=== PATIENT | male | born 1995 | race African-American/Black ===

== ENCOUNTER 2023-01-30 00:16 | Emergency (ER) | payer MEDICAID ==
[~2023-01-30] VITALS: Ht 188 cm; Wt 72.6 kg
[2023-01-30] MEDS ORDERED: ALBU2.5V13 NEB (00:25)
[2023-01-30] MEDS ORDERED: ALBU18HF2 INH (00:25)
[2023-01-30] MEDS ORDERED: predniSONE 20 MG TABLET ONE (00:29)
[2023-01-30] MEDS ORDERED: predniSONE 20 MG TABLET PO ONE (00:30)
[2023-01-30] MEDS ORDERED: IPRATROPIUM NEB FS 0.5 MG/2.5 ML AMPUL.NEB NEB ONE (00:30)
[2023-01-30] MEDS ORDERED: ALBUTEROL FS 2.5 MG/3 ML VIAL.NEB NEB ONE (00:30)
[2023-01-30 00:51] VITALS: O2SAT 99
[2023-01-30] MEDS ORDERED: IPRATROPIUM NEB FS 0.5 MG/2.5 ML AMPUL.NEB ONE (00:52)
[2023-01-30] MEDS ORDERED: ALBUTEROL FS 2.5 MG/3 ML VIAL.NEB ONE (00:52)
[2023-01-30 01:51] VITALS: O2SAT 100
[2023-01-30] MEDS ORDERED: PRED20TA PO (02:08)
[2023-01-30 02:29] VITALS: BP 109/84; TEMP 98.1; O2SAT 99
== END 2023-01-30 02:29 | disposition home or self-care (01) ==
LOC: ER 00:19
DX: J45.901 Unspecified asthma with (acute) exacerbation (principal); Z79.899 Other long term (current) drug therapy
CPT/HCPCS: 99285; 94644; J7512